=== PATIENT | female | born 1945 | race Caucasian/White ===

== ENCOUNTER → 2017-03-16 | Day surgery (SDC) | payer BC, OTHER ==
[~2017-03-16] VITALS: Ht 157.5 cm; Wt 114.6 kg
[~2017-03-16] MED LIST: ATROPINE SULFATE 1% OPHT SOLN 2 ML BTL ONE; BACITRACIN TOP OINT 15 GM TUBE ONE; BALANCED SALT SOLN OPHT IRRIG 15 ML BTL ONE; BUPIVACAINE HCL PF 0.75% 10 ML VIAL ONE; CHLORHEXIDINE GLUCONATE 2 % 1 PACK (2 CLOTHS) TOPICAL PRN; DEXAMETHASONE SOD PHOS 4 MG/ML VIAL ONE; DO NOT ADM ANY ANTICOAGULANT DRUGS PRN; EPINEPHrine HCL (1:1000) 1 MG/ML VIAL ONE; FAMOTIDINE 20 MG/2 ML VIAL ONE; INSULIN HUMAN REGULAR 1,000 UNITS/10 ML VIAL SQ PRN; LACTATED RINGER'S 1000 ML IV PRN; LIDOCAINE HCL 2% 50 ML VIAL ONE; METOPROLOL TARTRATE 25 MG TAB PO PRN; MIDAZOLAM HCL 2 MG/2 ML VIAL ONE; MULT-65 PO; MURO2SOL EACH EYE; ONDANSETRON HCL 4 MG/2 ML VIAL IV PUSH ONE; POVIDONE IODINE 5% (ANTISEPSIS KIT) 4 APPLICATIONS EACH NARE PRN; PROPOFOL 200 MG/20 ML AMP IV ONE; SODIUM CHLORID 0.9% 500 ML IV PRN; SODIUM CHLORIDE 0.9% 20 ML VIAL ONE; STERILE WATER FOR INJECTION 20 ML VIAL ONE; TOBRAMYCIN/DEXAMETHASONE OPTH OINT 3.5 GM TUBE ONE; TRIAMCINOLONE ACETONIDE 40 MG/ML VIAL ONE; ceFAZolin INJ 1,000 MG VIAL ONE; oxyCODONE/ACETAMINOPHEN 5 MG/325 MG TAB ONE
[2017-03-16] MEDS: ATROPINE SULFATE 1% OPHT SOLN 5 ML BTL RIGHT EYE SCH ×4 (07:15→08:20)
[2017-03-16 07:19] VITALS: BP 141/99; PULSE 83; RESP 16; TEMP 97.6; O2SAT 92
[2017-03-16] MEDS: CYCLOPENTOLATE HCL 1% OPHT SOLN 2 ML BTL RIGHT EYE SCH ×4 (07:35→08:20)
[2017-03-16] MEDS: TROPICAMIDE 1% OPHT SOLN 15 ML BTL RIGHT EYE SCH ×4 (07:35→08:20)
[2017-03-16] MEDS: PHENYLEPHRINE HCL 2.5% OPTH SOLN 2 ML BTL RIGHT EYE SCH ×4 (07:35→08:20)
[2017-03-16 07:39] LABS: AUTOMATED NEUTROPHIL # 3.7 TH/MM3 (1.8-7.7); BASOPHIL # 0.1 TH/MM3 (0-0.2); BASOPHIL % 0.8 % (0.0-2.0); EOSINOPHIL # 0.2 TH/MM3 (0-0.4); EOSINOPHIL % 2.2 % (0.0-4.0); HEMATOCRIT 40.2 % (35.0-46.0); HEMO FLAGS DIFF FINAL; LYMPH % 35.9 % (9.0-44.0); LYMPHOCYTE # 2.5 TH/MM3 (1.0-4.8); MEAN CELL VOLUME 88.8 FL (80.0-100.0); MEAN CORPUSCULAR HEMOGLOBIN 29.5 PG (27.0-34.0); MEAN CORPUSCULAR HGB CONC 33.2 % (32.0-36.0); MONO % 7.8 % (0.0-8.0); NEUT % 53.3 % (16.0-70.0); PLATELET COUNT 228 TH/MM3 (150-450); RED BLOOD COUNT 4.53 MIL/MM3 (4.00-5.30); RED CELL DISTRIBUTION WIDTH 14.3 % (11.6-17.2)
--- NOTE | 2017-03-16 08:51 | EKG ---
Date Performed: 03/16/2017 Time Performed: 07:21:47 PTAGE: 71 years EKG: Sinus rhythm WITH FIRST DEGREE AV BLOCK ABNORMAL ECG NO PREVIOUS TRACING DOCTOR: Steven Godinez Interpretating Date/Time 03/16/2017 08:49:17
[2017-03-16 11:47] VITALS: BP 131/68; PULSE 71; RESP 18; TEMP 97.2; O2SAT 95
--- NOTE | 2017-03-16 13:33 | MP ---
cc: NAE MOORE M.D. DATE OF SURGERY 03/16/2017 PREOPERATIVE DIAGNOSIS Persistent macular hole right eye. POSTOPERATIVE DIAGNOSIS Persistent macular hole right eye. PROCEDURE Trans pars plana vitrectomy, membranectomy, gas-fluid exchange right eye. SURGEON Dr. Nae Moore ANESTHESIA General laryngeal mask anesthesia INDICATIONS Ms. Loyola is a 71-year-old woman who underwent a primary vitrectomy for macular hole closure with gas-fluid exchange back in 2014. Since then, she had developed age-related macular degeneration and was treated with intravitreal anti-vegf agents. The macular hole, which was done with a different surgeon, had not closed. Once the macula had been stabilized, she wished to proceed electively with another procedure to try and close the macular hole. She was aware that this would require significant prolonged face-down positioning. The risks and benefits of surgery were discussed with the patient. Informed consent was obtained. No guarantee was made as to visual outcome. PROCEDURE NOTE She was brought to [facility] operating room one on the operating gurney. Appropriate anesthesia monitoring devices were applied and she was placed under general anesthesia using a laryngeal mask. The right eye was prepped and draped in the usual sterile fashion. A lid speculum was placed. Using the Moody 23 gauge vitrector vitrectomy system, the trocar cannulas were placed 3-1/2 mm posterior to the limbus in this pseudophakic eye. The first one was placed at approximately 8:45 o'clock and verified to be in the posterior chamber. An infusion cannula was attached to it. It was turned on. Two additional trocar cannulas were placed in a similar fashion after first displacing the conjunctiva and with a beveled entrance through the sclera at 10 and 2 o'clock. The eye was entered with the [employer] technical lead light pipe and Raghavendra's pick and using the flat contact lens for visualization, membrane pealing was performed around the edges of the macular hole. The eye was then inspected with the indirect ophthalmoscope and scleral depression. No retinal breaks were found. Using a soft tipped linear extrusion needle, which had been shortened to go through the valve cannulas, an air-fluid exchange was performed. The air was then exchanged out for a 15% mixture of C3F8 gas. 0.05 cc or 2 mg of Kenalog were injected into the vitreous cavity. The plugs were then removed one by one with tamponade of the site with a cotton swab and diathermy to the overlying conjunctiva leaving the eye with good pressure and no visible air leaks. Atropine drops were placed on the cornea followed by subconjunctival actions of Ancef 125 mg in half cc and Decadron 2 mg in half ml. The lid speculum was removed and the eye was undraped. TobraDex ointment was placed on the cornea and then the eye was patched and shielded. The patient had the laryngeal mask removed in the room and was returned to recovery in good condition laying on her left side. When awake and alert, she will be asked to begin face-down positioning. MD LEORA Cortez/GRIFFIN /10:39 AM /1:21 PM
== END | disposition home or self-care (01) ==
LOC: HSDC 06:44
PROVIDERS: ATTEND Ophthalmology
DX: H35.341 Macular cyst, hole, or pseudohole, right eye (principal); R94.31 Abnormal electrocardiogram [ECG] [EKG]
CPT/HCPCS: 00145; 67042; 85025; 93005; J0171; J0690; J1100; J2250; J2405; J3010; J3301; J7120